=== PATIENT | male | born 1975 | race Caucasian/White ===

== ENCOUNTER 2018-12-03 00:40 | Emergency (ER) | payer OTHER ==
[~2018-12-03] VITALS: Ht 175.3 cm; Wt 102.1 kg
[2018-12-03] MEDS ORDERED: ZOFRAN ODT4 MG PO (01:45)
[2018-12-03 01:55] VITALS: BP 120/78
== END 2018-12-03 01:55 | disposition home or self-care (01) ==
LOC: M.ERS 00:40
DX: R19.7 Diarrhea, unspecified (principal); R11.10 Vomiting, unspecified

== ENCOUNTER 2019-12-10 06:57 | Emergency (ER) | payer OTHER ==
[~2019-12-10] VITALS: Ht 177.8 cm; Wt 99.8 kg
[~2019-12-10 06:57] MED LIST: ZOFRAN ODT4 MG PO
[2019-12-10] MEDS ORDERED: AMOXICILLIN 50500 MG PO (07:24)
[2019-12-10] MEDS ORDERED: ALLEGRA-D 24 H1 EACH PO (07:24)
[2019-12-10] MEDS ORDERED: FLONASE 0.05%50 MCG NARES (07:24)
[2019-12-10 07:29] VITALS: BP 147/101
== END 2019-12-10 07:30 | disposition home or self-care (01) ==
LOC: M.ERS 06:57
DX: J32.9 Chronic sinusitis, unspecified (principal)

== ENCOUNTER 2021-03-07 06:28 | Emergency (ER) | payer OTHER ==
[~2021-03-07] VITALS: Ht 177.8 cm; Wt 108.9 kg
[~2021-03-07 06:28] MED LIST changes: +ALLEGRA-D 24 H1 EACH PO; +AMOXICILLIN 50500 MG PO; +FLONASE 0.05%50 MCG NARES
[2021-03-07] MEDS ORDERED: TESSALON PERLE100 M1 PO (07:34)
[2021-03-07] MEDS ORDERED: ZOFRAN ODT4 MG DISSOLVE (07:34)
[2021-03-07 07:47] VITALS: BP 122/68
== END 2021-03-07 07:48 | disposition home or self-care (01) ==
LOC: M.ERS 06:28
DX: U07.1 COVID-19 (principal)